=== PATIENT | female | born 1990 | race Caucasian/White ===

== ENCOUNTER 2017-05-01 00:24 | Emergency (ER) | payer OTHER ==
[~2017-05-01 00:24] MED LIST: FLEXERIL 5MG TAB5 MG PO; MEDROL DOSEPAK1 PAC PO; MOTRIN 600 MG600 MG PO; TRI SPRINTEC PO; VIBRAMYCIN 100100 MG PO
[2017-05-01 00:36] VITALS: BP 110/73
[2017-05-01] MEDS ORDERED: HYDROXYZINE HCL25 M2 PO (00:56)
[2017-05-01] MEDS ORDERED: PREDNISONE20 M1 PO (00:56)
--- NOTE | 2017-05-01 00:57 | ED SKIN/ALLERGY COMPLAINT ---
History of Present Illness General Chief Complaint: Skin Rash/ Abcess Stated Complaint: "RASH ALL OVER BODY" ?BITE ORTIZ PER PT Source: patient, family, old records Exam Limitations: no limitations Vital Signs & Intake/Output Vital Signs & Intake/Output Vital Signs Date Time Temp Pulse Resp B/P B/P Pulse O2 O2 Flow FiO2 Mean Ox Delivery Rate 05/01 0036 98.9 116 18 110/73 98 Room Air Allergies Coded Allergies: MDX - Sulfamethizole (SULFAMETHIZOLE) (Mild, RASH 05/01/17) Reconcile Medications Cyclobenzaprine (Flexeril 5MG Tab) 5 MG TAB 5 MG PO TID Back Pain Doxycycline (Vibramycin 100 MG Cap) 100 MG CAP 1 TAB PO BID INFECTION ( Reported) Ethinyl Estradiol/Norgestima (Tri-Sprintec 35 Mcg-0.25 MG) 1 TAB TAB 1 TAB PO DAILY CONTROL (Reported) Hydroxyzine Hydrochloride (Atarax) 25 MG TAB 1-2 TAB PO Q6P PRN itchy rash Ibuprofen (Motrin 600 MG Tab) 600 MG TAB 1 TAB PO TID Back Pain with food Prednisone 20 MG TABLET 1 TAB PO BID rash Triage Note: TRIAGE: PATIENT TO ER FROM HOME REPORTING SUDDEN ONSET BILATERAL HAND AND FOOT RED BUMPS AND SWELLING. TOOK VITAMIN D AND PRENATALS YESTERDAY, "FIRST TIME I TOOK IT IN WEEKS." S/P LAPRASCOPIC SURGERY 2 WEEKS AGO. NO BUMPS/ RASH TO ANY OTHER SITE. SPOUSE REPORTS "WE SLEEP IN SAME BED, DO ALL THE SAME THINGS AND I DON'T HAVE THEM." Triage Nurses Notes Reviewed? yes Onset: 2 days Duration: day(s):, constant, continues in ED, getting worse Timing: recent history Severity: moderate Location: extremities Possible Factors: no cause identified No Modifying Factors: none Associated Symptoms: change in skin texture, edema, rash, swelling/mass/lumps LMP (ages 10-50): unknown : No Patient currently breastfeeds: No HPI: 2 weeks prior to admission patient had laparascopic fibroid resection. 2 days prior to admission patient complaints of increasing rash to hands and feet with swelling violaceous color. She denies fever chills nausea vomiting diarrhea abdominal pain chest pain shortness of breath headache dysuria bleeding . Past History Travel History Traveled to [place] past 21 day No Medical History Any Pertinent Medical History? 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 No Review of Systems Review of Systems Constitutional: Reports: no symptoms. EENTM: Reports: no symptoms. Respiratory: Reports: no symptoms. Cardiovascular: Reports: no symptoms. GI: Reports: no symptoms. Genitourinary: Reports: no symptoms. Musculoskeletal: Reports: no symptoms. Skin: Reports: see HPI, change in skin color, rash. Neurological/Psychological: Reports: no symptoms. Hematologic/Endocrine: Reports: no symptoms. Immunologic/Allergic: Reports: no symptoms. All Other Systems: Reviewed and Negative Physical Exam Physical Exam General Appearance: well developed/nourished, alert, awake, anxious, mild distress, thin Head: atraumatic, normal appearance Eyes: Bilateral: normal appearance, PERRL, EOMI. Ears, Nose, Throat: normal pharynx, normal ENT inspection, hearing grossly normal Neck: normal inspection, supple, full range of motion, no midline tenderness Respiratory: normal breath sounds, chest non-tender, no respiratory distress, quiet respiration, lungs clear Cardiovascular: regular rate/rhythm, normal peripheral pulses, norml femoral pulses equa Peripheral Pulses: 4+ carotid (R), 4+ carotid (L) Gastrointestinal: normal bowel sounds, soft, non-tender, no organomegaly Back: normal inspection, normal range of motion Extremities: normal range of motion, pedal edema, swelling Neurologic/Psych: no motor/sensory deficits, awake, alert, oriented x 3, normal gait, normal mood/affect, site planner II-XII nml as tested Reflexes: 2+: bicep (R), bicep (L). Skin: intact, rash Skin Problem Location: upper extremities (and wrist), lower extremities (feet and ankle) Skin Problem Character: lesion, papules, patchy, tenderness, thickening, wrist- hand's palm ankle feet sole with violaceous lesions purpuric appearing patchy distribution, with edema tenderness Lymphatic: no anterior cervical caitlin Progress Differential Diagnosis: abscess/cellulitis, allergic reaction, contact dermatitis Plan of Care: Current Medications Sig/Lizbeth Start time Last Medication Dose Stop Time Status Admin Diphenhydramine HCl 25 MG ONCE ONE 05/01 99 UNVr (Benadryl) 05/01 100 Prednisone 60 MG ONCE ONE 05/01 99 UNVr 05/01 100 Departure Departure Time of Disposition: 53 Disposition: HOME OR SELF CARE Condition: Stable Clinical Impression Primary Impression: PPGSS (papular-purpuric gloves and socks syndrome) Referrals: Tania Cummins (PCP/Family) Irma Valenzuela MD Call for dermatology follow up. Departure Forms: Customer Survey General Discharge Information Prescriptions: Current Visit Scripts Prednisone 1 TAB PO BID #10 TAB Hydroxyzine Hydrochloride (Atarax) 1-2 TAB PO Q6P PRN itchy rash #60 TAB
== END 2017-05-01 01:14 ==
LOC: ERH 00:24
DX: L98.8 Other specified disorders of the skin and subcutaneous tissue (principal)